=== PATIENT | female | born 1990 | race Two or more races ===

== ENCOUNTER 2021-04-18 08:33 | Emergency (ER) | payer OTHER ==
[~2021-04-18] VITALS: Ht 167.6 cm; Wt 67.1 kg
[2021-04-18] MEDS ORDERED: SYNTHROID100 MCG PO (08:48)
== END 2021-04-18 14:36 | disposition home or self-care (01) ==
LOC: ER 08:33
DX: N83.291 Other ovarian cyst, right side (principal); K59.09 Other constipation; R10.84 Generalized abdominal pain

== ENCOUNTER 2021-09-17 12:06 | Emergency (ER) | payer OTHER ==
[~2021-09-17] VITALS: Ht 167.6 cm; Wt 65.8 kg
[~2021-09-17 12:06] MED LIST: SYNTHROID100 MCG PO
== END 2021-09-17 20:57 | disposition home or self-care (01) ==
LOC: ER 12:06 → EDBD 12:06 → ER 16:00
DX: R10.13 Epigastric pain (principal)
CPT/HCPCS: 74177; Q9965

== ENCOUNTER 2025-04-06 09:01 | Outpatient (CLI) | payer OTHER | END 2025-04-06 09:13 | disposition home or self-care (01) | LOC: TOM 09:01 | DX: N93.0 Postcoital and contact bleeding (principal) ==